=== PATIENT | male | born 1945 | race African-American/Black ===

== ENCOUNTER 2019-08-04 07:05 | Day surgery (SDC) | payer MEDICARE ==
[~2019-08-04 07:05] MED LIST: CEFAZOLIN 2 Gram 2 GM/50 ML BAG IVPB ONE; CELECOXIB 100 MG CAPSULE PO ONE; FAMOTIDINE 20MG TABLET PO ONE; MECLIZINE 25 MG TABLET PO ONE; METOCLOPRAMIDE 10 MG TABLET PO ONE; VANCOMYCIN 1GM/200ML PREMIX 1 GM/200 ML PIGGYBACK IVPB ONE
[2019-08-04] MEDS ORDERED: DEXAMETHASONE 4 MG/ML 1ML VIAL IVP ONE (07:06)
[2019-08-04] MEDS ORDERED: ROPIVACAINE HCL (NAROPIN) /PF 5MG/ML 20ML VIAL IV ONE (07:06)
[2019-08-04] MEDS ORDERED: LIDOCAINE 2% MDV (20MG/ML) 20ML VIAL IV ONE (07:06)
[2019-08-04] MEDS ORDERED: MIDAZOLAM HCL 2MG/2ML VIAL IV ONE (07:06)
[2019-08-04] MEDS ORDERED: EPHEDRINE SULFATE 50 MG/ML ML IV ONE (07:06)
[2019-08-04] MEDS ORDERED: PROPOFOL 10 MG/ML VIAL IV ONE (07:06)
[2019-08-04 07:57] LABS: ABO GROUP B; ANTIBODY SCREEN NEGATIVE (NEGATIVE); RH TYPE POSITIVE
[2019-08-04] MEDS ORDERED: 0.9 % SODIUM CHLORIDE 1000ML 1,000 ML IV ONE (08:10)
[2019-08-04] MEDS ORDERED: BUPIVACAINE 0.5% W/EPI MPF 30 ML VIAL SQ ONE (09:47)
[2019-08-04] MEDS ORDERED: TRANEXAMIC ACID 1,000 MG/10 ML ML IV ONE (09:47)
[2019-08-04] MEDS ORDERED: TRANEXAMIC ACID 1,000 MG/10 ML ML IU ONE (09:47)
[2019-08-04] MEDS ORDERED: RINGERS SOLUTION,LACTATED 1,000 ML IV ONE (09:48)
[2019-08-04] MEDS ORDERED: TRAMADOL HCL 50 MG TABLET PO PRN (10:58)
[2019-08-04] MEDS ORDERED: HYDROCODONE/APAP 10/325 TABLET PO PRN ×2 (10:58)
[2019-08-04] MEDS ORDERED: MAGNESIUM HYDROXIDE 30 ML UDC PO PRN (10:58)
[2019-08-04] MEDS ORDERED: BISACODYL 10 MG SUPP RC PRN (10:58)
[2019-08-04] MEDS ORDERED: DIPHENHYDRAMINE HCL 25 MG CAPSULE PO PRN (10:58)
[2019-08-04] MEDS ORDERED: HYDROMORPHONE HCL 2 MG/ML VIAL IM PRN (10:58)
[2019-08-04] MEDS ORDERED: NALOXONE 0.4 MG/1 ML VIAL IVP PRN (10:58)
[2019-08-04] MEDS ORDERED: ACETAMINOPHEN W/ CODEINE 300MG/60MG TABLET PO PRN ×2 (10:58)
[2019-08-04] MEDS ORDERED: ACETAMINOPHEN 325 MG TAB PO PRN (10:58)
[2019-08-04] MEDS ORDERED: AL HYDROX/MAG HYDROX 30ML UD PO PRN (10:58)
[2019-08-04] MEDS ORDERED: ZOLPIDEM TARTRATE 5 MG TABLET PO PRN (10:58)
[2019-08-04] MEDS: 0.9 % SODIUM CHLORIDE 1000ML 1,000 ML IV SCH ×2 (12:58→21:13)
--- NOTE | 2019-08-04 14:23 | Rehab Evaluation ---
Patient Information - Patient Information Diagnosis: L knee DJD Ordered Treatment: PT Evaluate and Treat Status: Initial Evaluation Surgery: Yes (L knee TKA) Date of Surgery: 08/04/19 Past Medical/Surgical Hx: PAST MEDICAL/SURGICAL HISTORY Past Surgical History open heart 1996; BILAT CATARACT SX; rt knee replacement 2011; EGD; COLONOSCOPY PMH - Respiratory Hx Respiratory Disorders Yes Hx Bronchitis Yes: NOT RECENTLY Hx of Productive Cough Yes: CLEAR SPUTUM PMH - Cardiovascular Hx Cardiovascular Disorders Yes Hx Hypertension Yes Hx Coronary Artery Disease Yes: TRIPLE VALVES REPLACED WITH OPEN HEART SX Hx Coronary Artery Bypass Yes Graft Exercise Tolerance Good Residual Deficits from CVA No PMH - Neuro Hx Neurological Disorders Yes Hx Cerebrovascular Accident Yes: 5 MINI STROKES Hx Weakness Yes: LEFT KNEE PMH - GI Hx Gastrointestinal Disorders Yes Hx Weight Loss/Weight Gain Yes: 40 LBS SINCE 12/2017 Comment: "STOMACH INFECTION" 12/2017 PMH - Hx Genitourinary Disorders Yes Hx Renal Disease Yes: "NOT WORKING WELL" Comment: LOWER RENAL FUNCTION PMH - Endocrine Hx Endocrine Disorders No Hx Diabetes BORDERLINE PMH - Musculoskeletal Hx Musculoskeletal Disorders Yes Hx Arthritis Yes: LEFT KNEE Hx Gout Yes: ONCE A YEAR PMH - Psych Hx Psychiatric Problems No PMH - Hematology/Oncology Hx Hematology/Oncology Yes Disorders Hx Bruising Yes: ON PLAVIX Hx Sickle Cell Disease TRAIT CARRIER Hx Blood Transfusion Reaction No Premorbid Status: Detail (The patient was independent with all mobility prior to surgery.) Social History: Detail (The patient lives in a 2 story house with a basement with 2 steps at the enterance without handrails. The patient's bedroom and bathroom is on the main floor. The bathroom is equipped with: a walk in shower, shower bench, hand held shower, standard height toilet. No grab bars are present in the bathroom. The pt. has a front wheeled walker, single point cane.) Precautions: [place], Fall, Other (WBAT on the L LE) - Time With Patient Total Time Spent With Patient (Min): 30 Treatment Procedures: Detail (Initial Evaluation, low complexity, gait training) Subjective Information - Subjective Information Per Patient (The patient had some complaints of L knee soreness but no complaints of pain.) Objective Data - Mental Status Patient Orientation: Oriented x3 (Pt. was lethargic but able to respond to commands.) - Visual Perception Appears within normal limits for therapeutic activities - ROM Not within normal limits (L knee AROM is limited as to be expected s/p surgery. All other AROM is WNL.) - Strength/Tone Not within normal limits (The patient's LE strength was not tested s/p however strength was functional) - Bed Mobility Independent (The patient was independent with supine to and from sit transfer.) - Transfers Independent (The patient was independent with sit to and from stand transfer.) - Balance Balance Sitting: Good Balance Standing: Good - Sensation Intact - Gait Detail (The patient ambulated with front wheeled walker WBAT 108 feet x 1 with supervision for safety only.) Therapy Assessment - Therapy Assessment Detail (The patient was independent with bed mobility, transfers and ambulation on levels. The patient was nauseated after ambulation and declined to go to the bathroom. Anticipate the patient will complete inpt. PT goals in one to two visits.) Problem List - Problem List Physical Therapy Problem List: Detail (Decreased L knee AROM and Strength) Goals - Goals Physical Therapy Goals: 1) The patient will be independent with TKA HEP. 2) The patient will ambulate on stairs using proper technique with supervision for safety. Plan - Plan Physical Therapy Plan: PT 1-2 sessions for ambulation on stairs and instruction in HEP.
[2019-08-04] MEDS: ONDANSETRON HCL IV 4 MG/2 ML VIAL IVP PRN (14:38)
[2019-08-04] MEDS: HYDRALAZINE 50 MG PO SCH ×2 (14:55→21:13)
[2019-08-04] MEDS: CEFAZOLIN 2 Gram 2 GM/50 ML BAG IVPB SCH (17:08)
[2019-08-04] MEDS: DOCUSATE SODIUM 100 MG CAPSULE PO SCH (21:12)
[2019-08-04] MEDS: METOPROLOL TARTRATE 25 MG PO SCH (21:13)
[2019-08-04] MEDS ORDERED: ATORVASTATIN 80MG PO SCH (22:00)
[2019-08-04] MEDS ORDERED: AMLODIPINE 10MG PO SCH (22:00)
[2019-08-05] MEDS: CEFAZOLIN 2 Gram 2 GM/50 ML BAG IVPB SCH ×2 (01:00→10:03)
[2019-08-05] MEDS: 0.9 % SODIUM CHLORIDE 1000ML 1,000 ML IV SCH ×2 (05:59→11:18)
[2019-08-05] MEDS: HYDRALAZINE 50 MG PO SCH ×2 (06:01→14:00)
[2019-08-05 06:44] LABS: HEMATOCRIT 29.1 % (42.0-52.0); HEMOGLOBIN 9.2 gm/dl (14.0-18.0)
[2019-08-05] MEDS ORDERED: FLU VAC QS 2019-20 (INPT, 6MO+) 60MCG/0.5ML IM ONE (09:00)
[2019-08-05] MEDS ORDERED: CLOPIDOGREL 75MG TABLET PO SCH (10:00)
[2019-08-05] MEDS ORDERED: FERROUS SULFATE 325 MG TAB PO SCH (10:00)
[2019-08-05] MEDS ORDERED: RIVAROXABAN 10 MG TABLET PO SCH (10:00)
[2019-08-05] MEDS ORDERED: ASPIRIN 81 MG TABEC PO SCH (10:00)
[2019-08-05] MEDS: METOPROLOL TARTRATE 25 MG PO SCH ×2 (10:09→10:11)
[2019-08-05] MEDS: DOCUSATE SODIUM 100 MG CAPSULE PO SCH (10:09)
--- NOTE | 2019-08-05 10:15 | Physical Therapy Tx Note ---
Physical Therapy Tx Note - Treatment Note Tolerated: Good Total Time Spent With Patient: 30 Physical Therapy Tx Note: Detail (The patient was in bed when PT arrived and stated he did not sleep well last night. Patient denied any pain. The patient ambulated with front wheeled walker a distance of 108 feet x 1 WBAT on the L LE independently. The patient ambulated on 3 steps with use of folded walker and one railing using proper technique with supervision for safety only. The patient completed TKA HEP including seated heel slides, ankle pumps, gluteal sets, quad sets, hamstring sets and SLR with use of strap. The patient has completed all inpt. PT goals and is discharged from inpt. PT.) Physical Therapy Problem List: Detail (Decreased L knee AROM and Strength) Physical Therapy Goals: 1) The patient will be independent with TKA HEP (Goal Met). 2) The patient will ambulate on stairs using proper technique with supervision for safety. (Goal Met) Physical Therapy Plan: The patient is discharged from inpt. PT and is to continue with Home PT.
[2019-08-05] MEDS: ONDANSETRON HCL IV 4 MG/2 ML VIAL IVP PRN (11:57)
--- NOTE | 2019-08-05 14:38 | Rehab Evaluation ---
Patient Information - Patient Information Diagnosis: L knee DJD Ordered Treatment: OT Evaluate and Treat Status: Initial Evaluation Surgery: Yes (L knee TKA) Date of Surgery: 08/04/19 Past Medical/Surgical Hx: PAST MEDICAL/SURGICAL HISTORY Past Surgical History open heart 1996; BILAT CATARACT SX; rt knee replacement 2011; EGD; COLONOSCOPY PMH - Respiratory Hx Respiratory Disorders Yes Hx Bronchitis Yes: NOT RECENTLY Hx of Productive Cough Yes: CLEAR SPUTUM PMH - Cardiovascular Hx Cardiovascular Disorders Yes Hx Hypertension Yes Hx Coronary Artery Disease Yes: TRIPLE VALVES REPLACED WITH OPEN HEART SX Hx Coronary Artery Bypass Yes Graft Exercise Tolerance Good Residual Deficits from CVA No PMH - Neuro Hx Neurological Disorders Yes Hx Cerebrovascular Accident Yes: 5 MINI STROKES Hx Weakness Yes: LEFT KNEE PMH - GI Hx Gastrointestinal Disorders Yes Hx Weight Loss/Weight Gain Yes: 40 LBS SINCE 12/2017 Comment: "STOMACH INFECTION" 12/2017 PMH - Hx Genitourinary Disorders Yes Hx Renal Disease Yes: "NOT WORKING WELL" Comment: LOWER RENAL FUNCTION PMH - Endocrine Hx Endocrine Disorders No Hx Diabetes BORDERLINE PMH - Musculoskeletal Hx Musculoskeletal Disorders Yes Hx Arthritis Yes: LEFT KNEE Hx Gout Yes: ONCE A YEAR PMH - Psych Hx Psychiatric Problems No PMH - Hematology/Oncology Hx Hematology/Oncology Yes Disorders Hx Bruising Yes: ON PLAVIX Hx Sickle Cell Disease TRAIT CARRIER Hx Blood Transfusion Reaction No Premorbid Status: Detail (The patient was independent with all ADLs and functional mobility prior to surgery.) Social History: Detail (The patient lives in a 2 story house with a basement with 2 steps at the entrance without handrails. The patient's bedroom and bathroom is on the main floor and he does not need to access the up or downstairs at [place]. The bathroom is equipped with a walk in shower, shower chair, hand held shower, and standard height toilet. No grab bars are present in the bathroom. The Pt has a front wheeled walker and single point cane.) Precautions: [place], Fall, Other (WBAT on the L LE) - Time With Patient Total Time Spent With Patient (Min): 30 (1 eval, 1 self-care) Subjective Information - Subjective Information Per Patient (Pt states, "My can help me at home, she can put my tedhose and socks on like last time.") Objective Data - Pain Pain Present: Yes (6/10 L knee, just received pain meds, ice placed on knee at end of session) - Mental Status Patient Orientation: Oriented x3 - Visual Perception Appears within normal limits for therapeutic activities - ROM Within normal limits (B UEs) - Strength/Tone Within normal limits (B UEs) - Coordination Appears within normal limits for therapeutic activities - Bed Mobility Independent (supine > EOB) - Transfers Independent (sit-stand to FWW w/ supervision for safety - v/c for safe walker use) - Balance Balance Sitting: Good Balance Standing: Good, Fair - Sensation Intact - Gait Detail (Fxl mobility within bedroom w/ FWW - verbal cues for safe use of walker, increasing follow thru throughout session.) - ADL's/IADL's Detail (OT educ. Pt on modified technique and Pt requires MIN assist for LB dressing grossly - assist to thread R sock, pant leg, and supervision for standing pant mgmt w/ verbal cueing for alternating support on walker for balance. Pt demos fair-good balance during standing toileting post therapist educ on walker placement for uni support over toilet. OT educ. Pt on home and bathroom safety including use of walker and shower chair, Pt verbalizes understanding.) - Special Tests Yes Therapy Assessment - Therapy Assessment Detail (Pt continues to require MIN assist for ADLs, however he reports his will assist at home. Demos increasing safety w/ walker use at end of session. Pt demos need for increased time, increased cueing, and increased assist w/ problem solving, however this is likely baseline cognitive level w/ Hx of TIA. Recommend home DC w/ assist as needed and increased supervision at initial DC for safety.) Patient Education - Patient Education Teaching Topic: Equipment Use, Other (modified techniques for dressing; home mods for safety, walker use) Teaching Method: Discussion, Demonstration Teaching Recipient: Patient Barriers To Learning: None, Cognitive/Verbal Problem List - Problem List Physical Therapy Problem List: Detail (Decreased L knee AROM and Strength) Occupational Therapy Problem List: Detail (No further IP OT needs identified.) Goals - Goals Physical Therapy Goals: 1) The patient will be independent with TKA HEP (Goal Met). 2) The patient will ambulate on stairs using proper technique with supervision for safety. (Goal Met) Occupational Therapy Goals: No further IP OT needs/goals identified. Prognosis - Prognosis Good Plan - Plan Physical Therapy Plan: The patient is discharged from inpt. PT [facility] Occupational Therapy Plan: No further IP OT needs/goals identified. DC skilled OT services. Thank you for this referral.
--- NOTE | 2019-08-06 10:41 | Operative Note ---
DATE OF SURGERY: 08/04/2019 PREOPERATIVE DIAGNOSIS: End-stage arthrosis of the left knee. POSTOPERATIVE DIAGNOSIS: End-stage arthrosis of the left knee. OPERATION: Cemented left total knee arthroplasty using [employer] components with a size 7 cobalt chrome femur, a size 6 stemmed tibia baseplate, a 9 mm lipped tibial insert, and a 35 mm all-plastic patella. STAFF SURGEON: Ollie Christian MD ANESTHESIA: Spinal. PREPARATION: Chloraprep. INDIVIDUAL CONSIDERATIONS: None. PROCEDURE: The patient was taken to the operating room, placed supine on the operating room table. He had a successful induction of a spinal anesthetic. The left lower extremity was prepped and draped in the usual fashion. The patient had a midline approach to the knee. Sharp dissection carried down through skin and subcutaneous tissue. Small veins were coagulated with a Bovie. A medial arthrotomy was performed. The patella was everted and the knee was flexed. The patient had bone loss and exposed bone in the medial and patellofemoral compartments. ACL was sacrificed, and provisional anterior meniscectomies were performed. The capsule was released from the medial proximal tibia. The initial femoral remote pilot operator hole was then made freehand. The intramedullary femoral cutting jig was placed. It was cut in 7.0 degrees of valgus and adjusted for rotation and secured with pins for a 10 mm resection. The skin guide was placed in the anterior and posterior remote pilot operator holes. This was done in 3 degrees of external rotation. It was found that a size 7 would be appropriate. The anterior and posterior cuts followed by chamfer cuts were made. Osteophytes removed, and a size 7 trial was placed and found to fit well. The tibia was brought forward, and the remainder of the meniscal remnants removed with a Bovie. The extraarticular tibial cutting jig was placed. It was cut in neutral with a 3-degree AP slope. It was set for a 9 mm resection keyed off the high lateral side and secured with pins. When cutting the tibia, care was taken to preserve the PCL insertion on the tibia. After removing large medial osteophytes, I could fit a size 6. It was adjusted for rotation and secured with pins. With a size 9 trial and femoral trial, there was excellent motion and stability. Ligamentous balance and rotation alignment were thought to be normal. Femoral remote pilot operator holes were impacted and tri-flange tibial keel stamp was impacted, and these trial components were removed. The patient had a thick patella and roughly 9 mm of bone was removed freehand. I was easily able to fit a 35 patella. The 3 remote pilot operator holes were drilled. The tourniquet was let down briefly to get bleeders posteriorly and then placed back up again. The knee was then thoroughly irrigated out with pulsatile Betadine and saline to remove any visual or palpable debris. Bony surfaces were then dried. A size 6 stemmed tibia baseplate was cemented into place followed by impaction of the 9 mm lipped tibial insert followed by cementing in the size 7 cobalt chrome femur followed by cementing in the 35 mm patella. The implant surfaces were compressed, excess cement was removed. After the cement had set, there was excellent motion and stability. Ligamentous balance, rotation alignment, and patellofemoral tracking were normal. No lateral release was required. Again thorough irrigation to remove any visual or palpable debris. Tourniquet was let down. Hemostasis was obtained with a Bovie. The skin, subcu, and periosteum were infiltrated with 30 mL of 0.5% Marcaine with epinephrine. The capsule was then closed with a running #2 quill, subcu was closed in layers with running 0 quill, skin was closed with miki. The patient did receive 1 g of tranexamic acid preoperatively. I mixed 1 g of tranexamic acid with 30 mL of saline and injected into the knee through a sterile 18-gauge needle, and a sterile bulky compressive ANEUDY-type dressing was applied. The patient tolerated the procedure well. Needle and sponge counts were correct. Estimated blood loss was minimal, and he was taken back to recovery in good condition. There were no complications. MYA
== END 2019-08-05 14:55 | disposition home or self-care (01) ==
LOC: SUR 07:05 → MEDSURG 11:31 → SUR 08-05 14:55
PROVIDERS: ATTEND Orthopaedic Surgery
DX: M17.12 Unilateral primary osteoarthritis, left knee (principal); I10 Essential (primary) hypertension; E78.00 Pure hypercholesterolemia, unspecified; Z79.01 Long term (current) use of anticoagulants; Z95.1 Presence of aortocoronary bypass graft; Z86.73 Personal history of transient ischemic attack (TIA), and cerebral infarction without residual deficits
CPT/HCPCS: 01402; 27447; 64447; 85018; 85014; 80048; 86900; 86901; 86850; 90686; C1776 ×2; J3490 ×2; J2405 ×2; J0690 ×2; J2795; J3370; 76942; J7030; J7120